=== PATIENT | female | born 1970 | race Caucasian/White ===

== ENCOUNTER 2017-01-25 12:47 | Inpatient (IN) | payer MEDICARE ==
[~2017-01-25] VITALS: Ht 152.4 cm; Wt 119.2 kg
[~2017-01-25 12:47] MED LIST: ACID CONTROL150 MG PO; ALBUTEROL2.5 MG/3 M INH; ALLER-EASE180 MG PO; ALLERGY10 M1 PO; AMLODIPINE BESY10 MG PO; ASPIRIN EC81 MG PO; ASPIRIN81 MG PO; BRILINTA 90 MG90 MG PO; CARAFATE 1 GM TA1 GM GT; CEFUROXIME500 MG PO; CITALOPRAM HBR20 MG PO; CLOPIDOGREL75 MG PO; COLCHICINE0.6 MG PO; COMBIVENT0.074 GM/I INH; COMPAZINE 10MG10 MG GT; CRESTOR20 MG PO; DAILY MULTIPLE1 EAC1 PO; FIORICET 50-301 EACH PO; FOLIC ACID 1 MG1 MG PO; FUROSEMIDE20 MG PO; HYDRALAZINE HCL50 MG PO; HYDROCHLOROTHIA25 MG PO; IMDUR ER TAB 3030 MG PO; K-DUR TAB 20 M20 MEQ PO; K-TAB ER20 MEQ PO; LACTINEX PACKET1 PKT PO; LIDODERM PATCH 51 EA TOP; LISINOPRIL20 MG PO; LOPRESSOR 50 MG50 MG PO; MEDROL DOSEPAK 24 MG PO; MELADOX3 MG PO; NEURONTIN 400400 MG PO; NEURONTIN800 MG PO; OMEPRAZOLE20 MG PO; PROMETHAZINE HC25 M1 PO; PROTONIX40 MG PO; PROVENTIL HFA 61 INH INH; ROBAXIN 750 MG750 MG GT; ROBITUSSIN DM473 ML PO; SEROQUEL100 MG PO; TIZANIDINE HCL4 MG PO; TOPAMAX50 MG PO; TOPROL XL25 MG PO; TRAMADOL-ACETA1 EACH PO; TYLENOL W/CODEIN1 E1 PO; TYLENOL WITH C1 EAC1 PO; ULTRACET TABLE1 EACH PO; VALIUM 5 MG TAB5 MG PO; VITAMIN D 40400 UNIT PO; VITAMIN D400 UNI1 PO; ZYLOPRIM 100 M100 MG PO
[2017-01-25 14:55] LABS: HEMOGLOBIN 13.2 gm/dl (12.3-15.3); RED BLOOD COUNT 4.5 M/UL (4.00-5.10)
[2017-01-25 15:16] LABS: BUN/CREATININE RATIO 10 (0-10)
[2017-01-26 03:24] LABS: HEMOGLOBIN 12.8 gm/dl (12.3-15.3); RED BLOOD COUNT 4.31 M/UL (4.00-5.10); WHITE BLOOD COUNT 8.5 K/UL (4.5-11.0)
[2017-01-26] MEDS ORDERED: LASIX 40 MG TAB40 MG PO (10:15)
[2017-01-26] MEDS ORDERED: PROCHLORPERAZIN10 MG PO (10:16)
[2017-01-26] MEDS ORDERED: BACTRIM 400-801 EACH PO (10:19)
[2017-01-26] MEDS ORDERED: AMBIEN10 MG PO (10:20)
[2017-01-26] MEDS ORDERED: KLONOPIN TAB 00.5 MG PO (10:21)
[2017-01-26] MEDS ORDERED: TOPIRAMATE50 MG PO (10:23)
[2017-01-26] MEDS ORDERED: VENTOLIN HFA 66.7 GM INH (10:24)
[2017-01-26] MEDS ORDERED: COMBIVENT0.074 GM/I INH (10:25)
[2017-01-27 04:40] LABS: HEMOGLOBIN 12.5 gm/dl (12.3-15.3); RED BLOOD COUNT 4.23 M/UL (4.00-5.10); WHITE BLOOD COUNT 7.4 K/UL (4.5-11.0)
[2017-01-27 04:56] LABS: BUN/CREATININE RATIO 14 (0-10)
[2017-01-27 15:45] LABS: URINE CREATININE 75.4 mg/dL
[2017-01-28 04:12] LABS: HEMOGLOBIN 12.7 gm/dl (12.3-15.3); RED BLOOD COUNT 4.32 M/UL (4.00-5.10); WHITE BLOOD COUNT 7.1 K/UL (4.5-11.0)
[2017-01-28 04:33] LABS: BUN/CREATININE RATIO 19 (0-10)
[2017-01-28] MEDS ORDERED: NORVASC 5 MG TAB5 MG PO (13:07)
[2017-01-28] MEDS ORDERED: TRANDATE 200 M200 MG PO (18:09)
[2017-01-28] MEDS ORDERED: IMDUR ER TAB 3030 MG PO (18:09)
== END 2017-01-28 19:01 | disposition home or self-care (01) | DRG 292 ==
LOC: ER1 12:47 → ZEROF 18:03 → M/S 18:03
PROVIDERS: Emergency Medicine; ADMIT Internal Medicine
DX: I11.0 Hypertensive heart disease with heart failure (principal); Z68.43 Body mass index [BMI] 50.0-59.9, adult; I50.33 Acute on chronic diastolic (congestive) heart failure; I25.2 Old myocardial infarction; Z95.5 Presence of coronary angioplasty implant and graft; E78.5 Hyperlipidemia, unspecified; I25.10 Atherosclerotic heart disease of native coronary artery without angina pectoris; Z86.718 Personal history of other venous thrombosis and embolism; Z88.1 Allergy status to other antibiotic agents; F41.9 Anxiety disorder, unspecified; E66.01 Morbid (severe) obesity due to excess calories; M10.9 Gout, unspecified; F17.200 Nicotine dependence, unspecified, uncomplicated; Z82.49 Family history of ischemic heart disease and other diseases of the circulatory system; Z83.3 Family history of diabetes mellitus; Z79.82 Long term (current) use of aspirin; Z79.899 Other long term (current) drug therapy; E87.6 Hypokalemia; E83.42 Hypomagnesemia
CPT/HCPCS: ECHO; 36415; 36600; 70450; 71010; 71020; 80048; 80053; 82530; 82550; 82553; 82570; 82803; 83735; 83874; 83880; 84132; 84484; 85025; 85027; 86140; 87040; 93005; 93306; 94640; 94664; 96374; 96375; 96376; 99285; J0456; J0696; J1650; J1940; J2270; J7050; Q0164